=== PATIENT | female | born 1995 | race Caucasian/White ===

== ENCOUNTER 2016-04-26 08:37 | Emergency (ER) | payer BC ==
[~2016-04-26] VITALS: Ht 162.6 cm; Wt 73.1 kg
[~2016-04-26 08:37] MED LIST: LEVO-14 PO; XYZAL PO
[2016-04-26 08:49] VITALS: BP 132/85; PULSE 89; TEMP 36.5; O2SAT 99; Ht 162.6 cm; Wt 73.1 kg
[2016-04-26] MEDS ORDERED: LEVO-371 PO (09:22)
[2016-04-26] MEDS ORDERED: NORETAB29 PO (09:22)
--- NOTE | 2016-04-26 09:25 | DIAGNOSTIC IMAGING REPORT ---
RIGHT ANKLE MIN 3 VIEWS ROUTINE CLINICAL HISTORY: R ankle injury Right trauma. Pain. COMPARISON: None. DISCUSSION: The bones and joint spaces appear intact. There is no evidence of fracture, dislocation or bony disease. There is no evidence for soft tissue swelling. IMPRESSION: Negative study. Electronically signed by: Rui Moran M.D. 04/26/2016 9:23 AM Dictated Date/Time: 04/26/2016 9:23 AM
--- NOTE | 2016-04-26 11:22 | EMERGENCY ROOM VISIT NOTE ---
History First contact with patient: 08:51 Chief Complaint: ANKLE PAIN Stated Complaint: RIGHT ANKLE PAIN-FELL ON IT History of Present Illness The patient is a 20 year old female who presents to the Emergency Room with complaints of persistent right ankle pain after seeing her ankle last night. She was racing someone when she injured the ankle. She reports pain rated a 7 out of 10 with weightbearing. She currently rates her pain a 4 out of 10 on my exam. She denies any pain radiating into the leg or foot. Denies paresthesias or numbness of the right foot or toes, and denies any prior history of right ankle injuries. Review of Systems 10 system review was performed and was negative except for pertinent positives and negatives as indicated in history of present illness Past Medical/Surgical History Medical Problems: (1) Asthma (2) Bronchitis Surgical Problems: (1) History of ear surgery (2) History of wisdom tooth extraction (3) Status post epidural steroid injection Family History FH: cancer FH: hypertension Social History Smoking Status: Never Smoker Alcohol Use: occasionally Marital Status: single Occupation Status: [employer] student Current/Historical Medications Scheduled Levocetirizine Dihydrochloride (Xyzal), 1 TAB PO DAILY Norethindrone Acetate-Ethinyl (Lo Loestrin Fe), 1 TAB PO DAILY Allergies Coded Allergies: Celecoxib (Verified Allergy, Unknown, rash, 04/26/16) NUTS (Unverified Allergy, Unknown, pruritis, 04/26/16) Physical Exam Vital Signs Date Time Temp Pulse Resp B/P Pulse Ox O2 Delivery O2 Flow Rate FiO2 04/26/16 08:49 36.5 89 18 132/85 99 Room Air Physical Exam CONSTITUTIONAL: Healthy and well nourished. Alert and oriented X 3 with positive affect. She does not appear in any acute distress. HEENT: Normocephalic, atraumatic. Pupils equal, round and reactive. NECK: Full active range of motion without discomfort. MUSCULOSKELETAL: Examination of the right ankle shows minimal lateral edema. She has mild lateral tenderness. No focal tenderness over the deltoid ligament. Negative anterior draw. No additional focal discomfort over the dorsal midfoot, metatarsals, phalanges, calcaneus or Achilles tendon. Pedal pulses are intact. INTEGUMENTARY: No rash or other significant dermatologic conditions noted. NEUROLOGIC: Right foot and toes are sensory intact. Medical Decision & Procedures ER Provider Diagnostic Interpretation: My interpretation of right ankle x-rays does not show any acute fractures, dislocation or ankle mortise asymmetry. Radiologist report is as follows: RIGHT ANKLE MIN 3 VIEWS ROUTINE CLINICAL HISTORY: R ankle injury Right trauma. Pain. COMPARISON: None. DISCUSSION: The bones and joint spaces appear intact. There is no evidence of fracture, dislocation or bony disease. There is no evidence for soft tissue swelling. IMPRESSION: Negative study. ED Course Patient history and physical exam were performed. Nurse's notes were reviewed. The patient refused any analgesics while in the emergency department. X-rays of the right ankle were normal. The patient was encouraged to ice and elevate the ankle for swelling. Range of motion exercises to prevent stiffness. The patient reports that she has crutches at home. She was encouraged to follow-up with orthopedics if symptoms are not improving within the next 5-7 days. The patient was happy with plan of care, voiced understanding of all discharge instructions, and rated her pain a 3 out of 10 at the time of discharge. Medical Decision Impression Primary Impression: Right ankle sprain Departure Information Dispostion Home / Self-Care Forms HOME CARE DOCUMENTATION FORM, IMPORTANT VISIT INFORMATION Patient Instructions Ankle Sprain, My [facility] Additional Instructions Ice and elevate ankle for swelling and pain. Perform range of motion exercises to prevent stiffness. Use your crutches for the next 3 days - no WEIGHT ON FOOT. After 3 days, apply an ankle support and, continuing to use crutches, slowly apply weight as tolerated - NO LIMPING. Ibuprofen 800 mg and/or Tylenol 1000 mg every 8 hours. You may also alternate these medications for more effective pain relief: Ibuprofen --4 HRS--> Tylenol --4 HRS--> ibuprofen --4 HRS--> Tylenol .... If ankle has not improved within 5-7 days, follow-up with an orthopedic surgeon for further reevaluation. Problem Qualifiers Primary Impression: Right ankle sprain Encounter type: initial encounter Involved ligament of ankle: unspecified ligament Qualified Codes: S93.401A - Sprain of unspecified ligament of right ankle, initial encounter
== END 2016-04-26 09:43 | disposition home or self-care (01) ==
LOC: C.EDB 08:38
DX: S93.401A Sprain of unspecified ligament of right ankle, initial encounter (principal); W19.XXXA Unspecified fall, initial encounter; J45.909 Unspecified asthma, uncomplicated; Z79.899 Other long term (current) drug therapy